=== PATIENT | male | born 1995 | race Caucasian/White ===

== ENCOUNTER → 2018-04-14 | Outpatient (CLI) | payer OTHER ==
[~2018-04-14] MED LIST: ALB18R INH; NO ROUTINE MEDS; NYST15CR33 TP
[2018-04-14 11:41] LABS: PLATELET COUNT, AUTOMATED 150 K/uL (150-450)
--- NOTE | 2018-04-14 12:16 | RADIOLOGY IMAGING REPORT ---
FACILITY: [facility] [place] PATIENT NAME: Dustin Hooper : 1995 MR: [id number] V: [id number] EXAM DATE: ORDERING PHYSICIAN: GUDELIA ACEVEDO TECHNOLOGIST: Location: [facility] Patient: Dustin Hooper : 1995 Visit/Account:[id number] Date of Sevice: 04/14/2018 Exam type: HIP RIGHT History: Right hip strain Comparison: None. Findings: Two views of the right hip demonstrates no evidence of acute fracture or dislocation or significant a rthritic change. No lytic or blastic bone lesion is identified. IMPRESSION: 1. No acute osteoarticular abnormality the right hip is seen Report Dictated By: Sharyn Cruz MD at 04/14/2018 12:10 PM Report E-Signed By: Sharyn Cruz MD at 04/14/2018 12:11 PM WSN:[email or web address]
== END ==
LOC: LAB 11:06
PROVIDERS: ATTEND Internal Medicine
DX: Z00.00 Encounter for general adult medical examination without abnormal findings (principal); S76.001A Unspecified injury of muscle, fascia and tendon of right hip, initial encounter
CPT/HCPCS: 36415; 81001; 82040; 82247; 82310; 82374; 82435; 82565; 82947; 84075; 84132; 84155; 84295; 84443; 84450; 84460; 84520; 85025